=== PATIENT | female | born 2000 | race Hispanic/Latino ===

== ENCOUNTER 2021-09-05 14:20 | Emergency (ER) | payer BC, SELFPAY ==
[2021-09-05] VITALS (12 sets, daily range): BP systolic 92–122; BP diastolic 60–79; PULSE 73–109; RESP 16–23; TEMP 36.2; O2SAT 98–100
--- NOTE | ~2021-09-05 | CT_ITS ---
EXAMINATION: CT abdomen pelvis w con DATE: 09/05/2021 18:58 INDICATION: Abdominal distention, nausea TECHNIQUE: Computed tomography (CT) of the abdomen and pelvis was performed with 100 cc Omnipaque 350 intravenous contrast. Automated exposure control and iterative reconstruction technique were employe d. Exam dose: 782.13 mGy-cm total exam DLP. COMPARISON: None. FINDINGS: The upper aspect of the liver isn't excluded. The liver, spleen, pancreas, and adrenal glan ds and kidneys otherwise are unremarkable. Normal caliber of the abdominal aorta. No intraperitoneal or retroperitoneal or pelvic mass lesion or adenopathy or ascites. 1.7 cm right ovarian cyst. There is mild free fluid in the adnexal areas and cul-de-sac, possibly due to ruptured cyst. Differential diagnosis includes ruptured ectopic gestation, pelvic inflammatory di sease. The uterus is unremarkable. The urinary bladder appears normal. Normal appendix. No bowel obstruction, bowel wall thickening, pneumatosis or intraperitoneal free air . Small fat-containing umbilical hernia. Included skeletal structures are unremarkable. IMPRESSION: 1.7 cm right ovarian cyst, possibly ruptured, with mild free fluid in the adnexal areas and cul-de-sac. Differential diagnosis includes ruptured cyst, ruptured ectopic gestation, pelvic inf lammatory disease Normal appendix No bowel obstruction or free air Reviewed, dictated and finalized at [facility] Reviewed, dictated and finalized at [facility] [employer] IMPRESSION: 1.7 cm right ovarian cyst, possibly ruptured, with mild free fluid in the adnexal areas and cul-de-sac. Differential diagnosis includes ruptured cyst, ruptured ectopic gestation, pelvic inflammatory disease Normal appendix No bowel obstruction or free air
--- NOTE | 2021-09-05 14:30 | ECG_ITS ---
Measurements Intervals [place] Rate: 75 P: 25 OR: 173 QRS: 66 QRSD: 90 T: 18 QT: 373 QTc: 417 Interpretive Statements SINUS RHYTHM INCOMPLETE RIGHT BUNDLE BRANCH BLOCK LOW QRS VOLTAGE IN PRECORDIAL LEADS BASELINE ARTIFACT- I, II BORDERLINE ECG Electronically Signed On 09-05-2021 20:00:36 GMAT INSTRUCTOR by Daniel Mack D.O.
[2021-09-05 14:58] LABS: Basophils Percent Auto 0.4 % (0.2-1.2); Eosinophils Absolute Auto 0.5 K/mm3 (0-0.3); Eosinophils Percent Auto 6.6 % (0-4.4); Hematocrit 41.2 % (37.0-47.0); Hemoglobin 13.7 g/dL (12.0-15.0); Immature Granulocyte Absolute 0.03 K/mm3 (0.00-0.031); Immature Granulocyte Percent A 0.4 % (0-0.5); Lymphocytes Absolute Auto 2.28 K/mm3 (0.9-3.2); Lymphocytes Percent Auto 31.4 % (18.3-44.2); Mean Corpuscular HGB Conc 33.3 g/dl (32-36); Mean Corpuscular Hemoglobin 29.3 pg (26-34); Mean Corpuscular Volume 88.2 fl (80-100); Monocytes Absolute Auto 0.6 K/mm3 (0.1-0.6); Monocytes Percent Auto 7.8 % (2.6-8.5); Neutrophils Absolute Auto 3.9 K/mm3 (1.3-6.7); Neutrophils Percent Auto 53.4 % (45.5-73.1); Platelet Count Result 347 k/mm3 (150-375); Red Blood Count 4.67 M/mm3 (4.2-5.4); Red Cell Distribution Width 12.9 % (11.5-14.5); White Blood Count 7.3 K/mm3 (4.5-10.0)
[2021-09-05 15:09] LABS: Anion Gap 9 mmol/L (8-16); Blood Urea Nitrogen 9 mg/dL (7-17); Calcium 9.2 mg/dL (8.4-10.2); Carbon Dioxide 27 mmol/L (22-30); Chloride 102 mmol/L (98-107); Estimated CRCL calculation 138 ml/min; Estimated Glomerular Filt Rate > 60; Glucose 136 mg/dL (65-110); Potassium 3.9 mmol/L (3.4-5.0); Sodium 138 mmol/L (137-145)
[2021-09-05] MEDS: SODIUM CHLORIDE 0.9% IV 1,000 ML 999 ML IV CONT (18:15)
--- NOTE | 2021-09-05 18:18 | ED.DIZZY ---
HPI - Dizziness General Chief Complaint: Dizziness Stated Complaint: Dizzy and nausea x2 weeks Time Seen by Provider: 09/05/21 16:55 Source: patient Mode of arrival: ambulatory Limitations: no limitations History of Present Illness HPI Narrative: Pt presents for evaluation and treatment of dizziness and lightheadedness. Symptoms have been present for 2 weeks. She provides me with conflicting responses as to whether her symptoms have been constant and are intermittent. Sitting here during my initial interview she states she currently feels lightheaded. She states 2 days ago she had an episode where she felt like the room was spinning for approximately 2 minutes while watching television. She has never had these symptoms in the past. She denies any fever, chills, urinary symptoms, vaginal bleeding/discharge, shortness of breath cough or chest pain. She has experienced nausea for the past two weeks, with interval improvement and worsening. She has experienced about four episodes of vomiting over that period of time. She denies any abdominal pain states she has experienced abdominal bloating/distention postprandially. States she has not had a bowel movement in the last 2 days. Normal bowel pattern is once daily. Denies any blood or mucus in the stool. No diarrhea. States she had a colonoscopy about 4 years ago due to rectal bleeding and was told she had colitis. She is not sure whether this was related to infectious process versus IBD. LMP 08/08/21. She and her boyfriend always use condoms but she is not using any other form of contraception. She took a test in the last 24 hrs which was negative. Related Data Home Medications Medication Instructions Recorded Confirmed escitalopram oxalate mg 09/05/21 oxcarbazepine 09/05/21 Allergies Allergy/AdvReac Type Severity Reaction Status Date / Time No Known Allergies Allergy Verified 09/05/21 17:02 Review of Systems Review of Systems: CONSTITUTIONAL: Denies fever, chills, or sweats. EYES: Reports photophobia. Denies visual changes, redness, or discharge. ENT: Denies rhinorrhea, congestion, sore throat, or otalgia. CARDIOVASCULAR: Denies chest pain, palpitations, or edema. RESPIRATORY: Denies cough or dyspnea. GASTROINTESTINAL: Reports nausea and abdominal distention. Reports a few episodes of vomiting. Reports constipation GENITOURINARY: Denies dysuria or hematuria. SKIN: Denies rash or itching. MUSCULOSKELETAL: Denies back pain, joint pain, or myalgia. NEUROLOGIC: Reports headache, dizziness and lightheadedness. Reports recent episode where room was spinning. Denies numbness or weakness. PSYCHIATRIC: Denies anxiety or depression. [facility] Past Medical History Medical History (Updated 09/05/21 @ 20:12 by AGUSTIN Denney, ) Anxiety Mood disorder Surgical History Surgical History No pertinent past surgical history Family History Family History Father Hyperlipidemia Mother Breast cancer Social History Social History Smoking status: Never smoker Substance use: never Living arrangements: with friend(s) Additional living arrangements comments: Lives with boyfriend and roommates Gender identity (if verbalized by the patient): Female Sexual Orientation (if Verbalized by the Patient): Straight or Heterosexual Spiritual care concerns: No Exam Narrative: GENERAL: Well-appearing, well-nourished, and in no acute distress. HEAD: Normocephalic, atraumatic. EYES: PERRLA and EOMI. ENT: Nares clear, no rhinorrhea or epistaxis. Mucous membranes moist. Oropharynx without tonsillar hypertrophy exudate or other lesions. Bilateral TMs pearly estrada nonbulging NECK: Supple. No adenopathy or masses. No carotid bruits or JVD CHEST: Clear to auscultation. No respir
[2021-09-05 18:27] LABS: Alanine Aminotransferase 18 U/L (4-35); Albumin Level 4.5 g/dL (3.5-5.1); Alkaline Phosphatase 91 U/L (38-126); Aspartate Amino Transferase 27 U/L (14-36); Bilirubin,Total 0.5 mg/dL (0.2-1.3); Lipase 70 U/L (23-300)
[2021-09-05 18:47] LABS: Add Urine Microscopic? YES; Appearance Urine Cloudy (Clear); Bacteria Urine Trace /hpf; Bilirubin Urine Negative (Negative); Blood Urine Negative (Negative); Color Urine Yellow (Yellow); Glucose Urine UA Negative (Negative); Ketones Urine Negative (Negative); Leukocyte Esterase Ur Negative LEU/UL (Negative); Mucus Urine Moderate /lpf; Nitrate Urine Negative (Negative); Protein Urine Negative (Negative); Specific Grav Ur 1.021 (1.001-1.035); Squamous Epithelial Cell Urine Many /hpf (Few); WBC Urine 0-3 /hpf
--- NOTE | 2021-09-05 19:28 | PC.NURSE ---
Report received from MENDY Fagan. Assumed care of patient at this time.
[2021-09-05] MEDS: HYDROcodone/acetaminophen (*CRX) 5-325 MG TABLET 1 TAB PO (19:41)
[2021-09-05 20:03] LABS: Beta HCG Quantitative < 2.39 mIU/ML
--- NOTE | 2021-09-05 20:13 | PC.NURSE ---
Patient stating she feels much better and is ready to go home.
== END 2021-09-05 21:04 | disposition home or self-care (01) ==
PROVIDERS: Family Medicine; Emergency Provider Nurse Practitioner
DX: R42 Dizziness and giddiness (principal); R11.0 Nausea; N83.201 Unspecified ovarian cyst, right side; F41.9 Anxiety disorder, unspecified; F39 Unspecified mood [affective] disorder; I45.10 Unspecified right bundle-branch block
CPT/HCPCS: 36415; 74177; 80048; 80076; 81001; 81025; 83690; 84702; 85025; 93005; 96360; 99284; A9270; J7030; Q9967

== ENCOUNTER 2023-05-19 11:39 | Emergency (ER) | payer BC, SELFPAY ==
[2023-05-19 12:28] VITALS: BP 120/83; PULSE 81; RESP 18; TEMP 36.2; O2SAT 100
[2023-05-19 13:11] LABS: Appearance Urine Turbid (Clear); Bacteria Urine None Seen /hpf; Bilirubin Urine Negative (Negative); Blood Urine Negative (Negative); Color Urine Yellow (Yellow); Glucose Urine UA Negative (Negative); Ketones Urine Negative (Negative); Leukocyte Esterase Ur Trace LEU/UL (Negative); Nitrate Urine Negative (Negative); Non Pathogenic Casts 0-2; Protein Urine Negative (Negative); RBC Urine 0-2 /hpf (0-2); Squamous Epithelial Cell Urine Occasional /hpf (Few); Urobilinogen Urine 0.2 mg/dL (<2.0); WBC Urine 0-5 /hpf
[2023-05-19 13:24] LABS: Add Urine Microscopic? YES
--- NOTE | 2023-05-19 14:04 | ED.BACK ---
HPI - Back Pain/Injury General Chief Complaint: Back Pain/Injury Stated Complaint: left flank pain, possible Time Seen by Provider: 05/19/23 12:35 History of Present Illness HPI Narrative: Patient is a 22-year-old female who presents ER for left-sided back pain. Sudden onset earlier today while sitting. Made her nauseous. Worse with twisting and bending. No known injury. She is concerned maybe she could have a UTI. She has not had any dysuria or urinary frequency or urgency. No fevers or chills or sweats. She has not taken any pain medication. There is no radiation into the legs from the back. Related Data Home Medications Medication Instructions Recorded Confirmed escitalopram oxalate 20 mg tablet mg 09/05/21 oxcarbazepine 150 mg tablet 09/05/21 Allergies Allergy/AdvReac Type Severity Reaction Status Date / Time No Known Allergies Allergy Verified 09/05/21 17:02 Review of Systems Constitutional: Constitutional: Denies chills and Denies fever(s) Gastrointestinal: Gastrointestinal: Denies abdominal pain, Reports nausea and Denies vomiting Genitourinary: Genitourinary: Denies hematuria, Denies nocturia, Denies dysuria and Reports flank pain Musculoskeletal: Musculoskeletal: Reports back pain, Denies arthralgias and Denies joint swelling Neurologic: Denies focal weakness and Denies numbness PMFSH Past Medical History Medical History (Updated 05/19/23 @ 14:[address] MD) Anxiety Mood disorder Surgical History Surgical History No pertinent past surgical history Family History Family History Father Hyperlipidemia Mother Breast cancer Social History Social History Smoking status: Never smoker Substance use: never Living arrangements: with friend(s) Additional living arrangements comments: Lives with boyfriend and roommates Gender identity (if verbalized by the patient): Female Sexual Orientation (if Verbalized by the Patient): Straight or Heterosexual Spiritual care concerns: No Exam Narrative: GENERAL: Well-appearing, well-nourished, and in no acute distress. HEAD: Normocephalic, atraumatic. ENT: Mucous membranes moist. CHEST: Clear to auscultation. No respiratory distress. HEART: Regular rate and rhythm. Normal peripheral pulses. Eye: No reproducible midline tenderness to the T/L-spine. There is paraspinal muscle tenderness on the left side at the level of L2 that reproduces patient's original discomfort. EXTREMITIES: Normal range of motion. No edema. NEURO: Alert and oriented x3. PSYCH: Normal mood and affect. Course Course Emergency Course: Patient resting comfortably. Informed of results. No evidence of UTI or . Patient reports she is trying to conceive and their conception would have been 05/14/2023. Educated that treatment plan will be anti-inflammatory medication as well as increasing fluids at home. She verbalized understanding. Vital Signs Vital signs: Vital Signs Temperature 97.2 F L 05/19/23 12:28 Pulse Rate 81 05/19/23 12:28 Respiratory Rate 18 05/19/23 12:28 Blood Pressure 120/83 05/19/23 12:28 Pulse Oximetry 100 05/19/23 12:28 Oxygen Delivery Room Air 05/19/23 12:28 Temperature 97.2 F L 05/19/23 12:28 Pulse Rate 81 05/19/23 12:28 Respiratory Rate 18 05/19/23 12:28 Blood Pressure 120/83 05/19/23 12:28 Pulse Oximetry 100 05/19/23 12:28 Oxygen Delivery Room Air 05/19/23 12:28 MDM - Back Pain/Injury Lab Data Labs: Lab Results 05/19/23 Range/Units 12:54 Urine Color Yellow (Yellow) Urine Appearance Turbid H (Clear) Urine pH 7.0 (5.0-9.0) Ur Specific [place] 1.020 (1.001-1.035) Urine Protein Negative (Negative) mg/dL Urine Glucose (UA) Negative (Negati
== END 2023-05-19 14:26 | disposition home or self-care (01) ==
PROVIDERS: Emergency Provider Emergency Medicine
DX: M54.50 Low back pain, unspecified (principal); F41.9 Anxiety disorder, unspecified; F39 Unspecified mood [affective] disorder
CPT/HCPCS: 81001; 81025; 99283